=== PATIENT | male | born 1955 | race Caucasian/White ===

== ENCOUNTER → 2022-03-26 | Outpatient (CLI) | payer MEDICARE ==
--- NOTE | 2022-03-26 11:34 | CARD ---
MR#: [id number] Date of Study: 03/26/2022 Ordering Physician: ALBERTO CHESTER, Referring Physician: Anselmo SEYMOUR: AIMEE NUGENT RECS APPROVED REPORT EXAM: Two-dimensional and M-mode echocardiogram with Doppler and color Doppler. Other Information INDICATION Dyspnea 2D DIMENSIONS RVDd3.4 (2.9-3.5cm)Left Atrium(2D)3.1 (1.6-4.0cm) IVSd1.1 (0.7-1.1cm)Aortic Root(2D)3.5 (2.0-3.7cm) LVDd5.1 (3.9-5.9cm)LVOT Diameter2.2 (1.8-2.4cm) PWd1.0 (0.7-1.1cm)LVDs3.7 (2.5-4.0cm) FS (%) 26.7 %SV64.3 ml LVEF(%)51.9 (>50%) Pulmonary Valve PV Peak Asowcfxs974.0cm/s Tricuspid Valve TR P. Vxnrwajo252pl/sRAP [id number] TR Peak Gr.[id number] Pulmonary Vein S1 Kvsakcje49.4cm/sD2 Pvklfzjf56.2cm/s PVa [id number] LEFT VENTRICLE The left ventricle is normal size. There is normal left ventricular wall thickness. The left ventricl e systolic function normal. Ejection fraction is estimated at 60 to 65%. No regional wall motion abno rmalities noted. The left ventricular diastolic function is normal. No left ventricle thrombus noted on this study. There is no ventricular septal defect visualized. There is no left ventricular aneurys m. There is no mass noted in the left ventricle. RIGHT VENTRICLE The right ventricle is normal size. There is normal right ventricular wall thickness. The right ventr icular systolic function is normal. ATRIA The left atrium is borderline dilated. The right atrium size is normal. The interatrial septum is int act with no evidence for an atrial septal defect or patent foramen ovale as noted on 2-D or Doppler i maging. AORTIC VALVE The aortic valve is trileaflet. No aortic regurgitation is present. There is no aortic valvular steno sis. There is no aortic valvular vegetation. MITRAL VALVE The mitral valve is normal in structure and function. There is no evidence of mitral valve prolapse. There is no mitral valve stenosis. There is no mitral valve regurgitation noted. TRICUSPID VALVE The tricuspid valve is normal in structure and function. Doppler and Color Flow revealed trace tricus pid regurgitation. The PA pressure was estimated at 14 mmHg. There is no tricuspid valve prolapse or vegetation. There is no tricuspid valve stenosis. PULMONIC VALVE The pulmonary valve is normal in structure and function. There is no pulmonic valvular regurgitation. There is no pulmonic valvular stenosis. GREAT VESSELS The aortic root is normal in size. The ascending aorta is Mildly dilated @ 4.1 cm. The pulmonary elizabeth ry is normal. The IVC is normal in size and collapses >50% with inspiration. PERICARDIAL EFFUSION There is no pleural effusion. There is no evidence of significant pericardial effusion. Critical Notification Critical Value: No <Conclusion> The left ventricle systolic function normal. Ejection fraction is estimated at 60 to 65%. No regional wall motion abnormalities noted. Trace tricuspid regurgitation. The PA pressure was estimated at 14 mmHg. There is no evidence of significant pericardial effusion. Signed by : Alberto Chester, Electronically Approved : 03/26/2022 11:33:55
== END ==
LOC: ECHO 09:27
PROVIDERS: ATTEND Internal Medicine Cardiovascular Disease
DX: I77.810 Thoracic aortic ectasia (principal); R00.2 Palpitations
CPT/HCPCS: 93306; C8929